=== PATIENT | male | born 1985 | race Caucasian/White ===

== ENCOUNTER 2019-10-07 14:32 | Observation (INO) | payer OTHER ==
--- NOTE | 2019-10-07 15:02 | ER Document Report ---
ED Medical Screen (RME) - General Chief Complaint: Hand Injury Stated Complaint: LEFT HAND LACERATION/TABLE SAW Time Seen by Provider: 10/07/19 15:00 Mode of Arrival: Ambulatory Information source: Patient Notes: 34-year-old male patient presenting with tablesaw injury to his left hand. Unable to get a full evaluation, patient appears to have multiple lacerations, unable to move his fingers. Cap refill less than 3 seconds. Taken straight to a room. I have greeted and performed a rapid initial assessment of this patient. A comprehensive ED assessment and evaluation of the patient, analysis of test results and completion of the medical decision making process will be conducted by additional ED providers. I have specifically instructed the patient or family members with the patient to immediately return to any nursing staff should anything change in the patient's condition or with their chief complaint. Physical Exam - Vital signs Vitals: Temp Pulse Resp BP Pulse Ox 97.6 F 79 16 120/82 97 10/07/19 14:40 10/07/19 14:40 10/07/19 14:40 10/07/19 14:40 10/07/19 14:40 Course - Vital Signs Vital signs: Temp Pulse Resp BP Pulse Ox 97.6 F 79 16 120/82 97 10/07/19 14:40 10/07/19 14:40 10/07/19 14:40 10/07/19 14:40 10/07/19 14:40
--- NOTE | 2019-10-07 15:25 | RADIOLOGY REPORT (SQ) ---
EXAM DESCRIPTION: HAND LEFT 3 VIEWS COMPLETED DATE/TIME: 10/07/2019 3:09 pm REASON FOR STUDY: hand laceration COMPARISON: None. EXAM PARAMETERS: NUMBER OF VIEWS: Three views. TECHNIQUE: AP, lateral and oblique radiographic images acquired of the left hand. LIMITATIONS: Patient unable to extend 2nd and 3rd phalanges. FINDINGS: MINERALIZATION: Normal. BONES: Fracture of the distal margin of the middle 2nd phalanx with a displaced fragment and dislocat ion of the distal interphalangeal joint. JOINTS: See above. SOFT TISSUES: Associated skin defect. Lacerations 3rd, 4th and 5th phalanges. OTHER: No other significant finding. IMPRESSION: Open fracture dislocation of the 2nd phalanx. TECHNICAL DOCUMENTATION: JOB ID: [id number] 2010 [employer]- All Rights Reserved Reading location - IP/workstation name: [email or web address]
[2019-10-07] MEDS ORDERED: MORPHINE SULFATE 10 MG/ML INJ IV ONE (15:56)
[2019-10-07] MEDS ORDERED: ONDANSETRON HCL INJ/PF 4 MG/2 ML SDV IV ONE (15:57)
--- NOTE | 2019-10-07 17:05 | RADIOLOGY REPORT (SQ) ---
EXAM DESCRIPTION: HAND LEFT 3 VIEWS COMPLETED DATE/TIME: 10/07/2019 4:51 pm REASON FOR STUDY: trauma COMPARISON: None. EXAM PARAMETERS: NUMBER OF VIEWS: Three views. TECHNIQUE: AP, lateral and oblique radiographic images acquired of the left hand. LIMITATIONS: None. FINDINGS: MINERALIZATION: Normal. BONES: Comminuted intra-articular fracture distal middle phalanx and base of distal phalanx, second digit. The largest fracture fragment is distracted and displaced dorsally. Marked soft tissue injur y and swelling. JOINTS: See above. SOFT TISSUES: No soft tissue swelling. No foreign body. OTHER: No other significant finding. IMPRESSION: 1. Markedly comminuted distracted intra-articular fracture distal interphalangeal joint , second digit. Swelling and marked soft tissue injury. TECHNICAL DOCUMENTATION: JOB ID: [id number] 2010 [employer]- All Rights Reserved Reading location - IP/workstation name: [email or web address]
[2019-10-07] MEDS ORDERED: LEVOFLOXACIN 750 MG/D5W RTU 750 MG/150 ML RTUPB IV ONE (17:12)
[2019-10-07] MEDS ORDERED: CLINDAMYCIN 900 MG/D5W RTU 900 MG/50 ML RTUPB IV ONE (17:13)
--- NOTE | 2019-10-07 17:17 | ER Document Report ---
ED General - General Chief Complaint: Hand Injury Stated Complaint: LEFT HAND LACERATION/TABLE SAW Time Seen by Provider: 10/07/19 15:00 Mode of Arrival: Ambulatory Information source: Patient, Parent Notes: Patient is a 34-year-old male presenting to the emergency department chief complaint of left second digit injury. Patient states he was using a table saw and ended up cutting his fingers on the left hand. Patient states that they are still attached but at least the second digit is badly lacerated. Patient has no other complaints at this time other than pain from same. Patient denies nausea vomiting diarrhea fevers chills cough or cold symptoms. Patient states tetanus is up-to-date he received it 2 years ago secondary to a chainsaw injury. TRAVEL OUTSIDE OF THE [place] IN LAST 30 DAYS: No - HPI Onset: Just prior to arrival Onset/Duration: Sudden Quality of pain: Throbbing Severity: Severe Pain Level: 5 Associated symptoms: None Exacerbated by: Movement Relieved by: Denies Similar symptoms previously: No Recently seen / treated by doctor: No - Related Data Allergies/Adverse Reactions: codeine Allergy (Verified 10/07/19 15:16) Penicillins Allergy (Verified 10/07/19 15:16) Sulfa (Sulfonamide Antibiotics) Allergy (Verified 10/07/19 15:16) Past Medical History - General Information source: Patient - Social History Smoking Status: Unknown if Ever Smoked Chew tobacco use (# tins/day): No Frequency of alcohol use: None Drug Abuse: None Lives with: Parents Family History: Reviewed & Not Pertinent Patient has suicidal ideation: No Patient has homicidal ideation: No - Medical History Medical History: Negative Surgical Hx: Negative Review of Systems - Review of Systems Constitutional: No symptoms reported EENT: No symptoms reported Cardiovascular: No symptoms reported Respiratory: No symptoms reported Gastrointestinal: No symptoms reported Genitourinary: No symptoms reported Male Genitourinary: No symptoms reported Musculoskeletal: See HPI Skin: No symptoms reported Hematologic/Lymphatic: No symptoms reported Neurological/Psychological: No symptoms reported -: Yes All other systems reviewed and negative Physical Exam - Vital signs Vitals: Temp Pulse Resp BP Pulse Ox 97.6 F 79 16 120/82 97 10/07/19 14:40 10/07/19 14:40 10/07/19 14:40 10/07/19 14:40 10/07/19 14:40 - Notes Notes: PHYSICAL EXAMINATION: GENERAL: Well-appearing, well-nourished however in moderate to severe distress secondary to left hand pain HEAD: Atraumatic, normocephalic. EYES: Pupils equal round and reactive to light, extraocular movements intact, sclera anicteric, conjunctiva are normal. ENT: nares patent, oropharynx clear without exudates. Moist mucous membranes. NECK: Normal range of motion, supple without lymphadenopathy, no appreciable JVD LUNGS: Lungs clear to auscultation bilaterally and equal. No wheezes rales or rhonchi. HEART: Regular rate and rhythm without murmurs ABDOMEN: Soft, nontender, normal bowel sounds. No guarding, no rebound. No masses appreciated. EXTREMITIES: Left hand demonstrates distal fracture dislocation of the second phalanx, distal portion of the finger is hyperesthetic, third digit has multiple superficial lacerations fourth digit also has superficial lacerations sensation is intact to all other digits capillary refill is easily assessed in the other fingers. NEUROLOGICAL: No focal neurological deficits. Moves all extremities spontaneously and on command. SKIN: Warm, Dry, and intact. Normal turgor, no rashes or lesions noted. Course - Re-evaluation Re-evalutation: 10/07/19 20:03 On presentation to the emergency department the patient was brought to the hospital room IV access was obtained. Examination of the patient's hand demonstrated the obvious deformities x-rays were initially taken prior to any medications being administered. Subsequently patient did receive 4 mg IV morphine 4 mg IV Zofran and repeat x-rays were obtained showing the obvious fracture dislocation to the second digit. I did speak with Dr. Castanon orthopedics quality control tester who agrees with admission of the patient overnight for pain management antibiotic administration and will evaluate the patient for surgical management in the morning. Patient and family are agreeable with care plan. Patient is stable at time of admission. - Vital Signs Vital signs: Temp Pulse Resp BP Pulse Ox 98.2 F 64 16 122/73 98 10/07/19 18:38 10/07/19 18:38 10/07/19 18:38 10/07/19 18:38 10/07/19 18:38 - Diagnostic Test Radiology reviewed: Reports reviewed Discharge - Discharge Clinical Impression: Fracture of phalanx of index finger Qualifiers: Encounter type: initial encounter Fracture type: open Phalanx: distal Fracture alignment: displaced Laterality: left Qualified Code(s): S62.631B - Displaced fracture of distal phalanx of left index finger, initial encounter for open fracture Condition: Stable Disposition: ADMITTED OBSERVATION Admitting Provider: Kina Unit Admitted: Surgical Floor
[2019-10-07] MEDS ORDERED: NICOTINE 21 MG/24 HR PATCH.TD24 TD ONE (18:07)
[2019-10-07] MEDS: OXYCODONE-ACETAMINOPHEN 5-325 MG TABLET PO PRN ×2 (19:03→23:19)
[2019-10-07] MEDS: VANCOMYCIN HCL 1,000 MG in DEXTROSE 5%-WATER 250 ML IV SCH (21:34)
[2019-10-08] MEDS: OXYCODONE-ACETAMINOPHEN 5-325 MG TABLET PO PRN ×2 (03:29→08:45)
[2019-10-08] MEDS: VANCOMYCIN HCL 1,000 MG in DEXTROSE 5%-WATER 250 ML IV SCH (10:00)
--- NOTE | 2019-10-08 11:37 | PDOC H&P ---
History of Present Illness Admission Date/PCP: 10/07/19 17:32 Patient complains of: Table saw injury of the left index and middle fingers History of Present Illness: RUBEN RUSSELL is a 34 year old male who sustained an injury to the left index and long fingers on a table saw yesterday. He was reportedly building airplanes for his niece and nephew. He believes that it was the wood that struck his hand but is uncertain whether or not he struck the blade. He had presented to the emergency room. Past Medical History Cardiac Medical History: Denies: None, Atrial Fibrillation, Congestive Heart Failure, Coronary Artery Disease, DVT, Myocardial Infarction, Hyperlipidema, Hypertension, Peripheral Vascular Disease, Pulmonary Embolism, Heart Murmur, Other Pulmonary Medical History: Reports: Asthma EENT Medical History: Denies: None, Cataracts, Eyes, Ears, Nose, Throat, Other Neurological Medical History: Denies: None, Hemorrhagic CVA, Ischemic CVA, Migraine, Multiple Sclerosis, Seizures, Other Endocrine Medical History: Denies: None, Diabetes Mellitus Type 1, Diabetes Mellitus Type 2, Gestational Diabetes, Hyperthyroidism, Hypothyroidism, Obesity, Other Renal/ Medical History: Denies: None, Chronic Kidney Disease, End Stage Renal Disease, Nephrolithiasis, Other Musculoskeltal Medical History: Denies: None, Arthritis, Fibromyalgia, Gout, Other Skin Medical History: Denies: None, Eczema, Psoriasis, Other Psychiatric Medical History: Reports: Bipolar Disorder, Depression Traumatic Medical History: Denies: None, Gunshot Wound, Pneumothorax, Stab Wound, Traumatic Brain Injury, Other Infectious Medical History: Denies: None, Clostridium Difficile, Hepatitis B, Hepatitis C, HIV, Methicillin-Resistant Staph Aureus, Vancomycin-Resistant Enterococci, Other Past Surgical History Past Surgical History: Denies: None, Appendectomy, Cardiac Catheterization, Carotid Endarterectomy, Cholecystectomy, Colostomy, Coronary Artery Bypass Graft, Coronary Stent, Gastric Bypass Surgery, Herniorrhaphy, Hip Replacement, Ileostomy, Internal Defibrillator, Knee Replacement, Orthopedic Surgery, Pacemaker, Renal Transplant, Splenectomy, Thyroidectomy, Tonsillectomy, Valve Replacement, Vascular Surgery, Other Social History Lives with: Parents Smoking Status: Former Smoker Electronic Cigarette use?: No Frequency of Alcohol Use: Rare Hx Recreational Drug Use: Yes Drugs: Marijuana Family History Family History: Reviewed & Not Pertinent Parental Family History Reviewed: Yes Children Family History Reviewed: NA Sibling(s) Family History Reviewed.: NA Medication/Allergy Home Medications: No Home Medications 10/07/19 Allergies/Adverse Reactions: codeine Allergy (Verified 10/07/19 15:16) Penicillins Allergy (Verified 10/07/19 15:16) Sulfa (Sulfonamide Antibiotics) Allergy (Verified 10/07/19 15:16) Review of Systems Constitutional: ABSENT: chills, fever(s), headache(s), weight gain, weight loss Eyes: ABSENT: visual disturbances Cardiovascular: ABSENT: chest pain, dyspnea on exertion, edema, orthropnea, palpitations Respiratory: ABSENT: cough, hemoptysis Gastrointestinal: ABSENT: abdominal pain, constipation, diarrhea, hematemesis, hematochezia, nausea, vomiting Genitourinary: ABSENT: dysuria, hematuria Musculoskeletal: PRESENT: other - There has been a table saw injury to the left hand. There is severe injury to the index finger with destruction of the distal interphalangeal joint and extensive soft tissue damage. It is unclear whether the distal aspect of the index finger has a viable blood supply. Sensation is decreased at the tip of the digit. The long finger has significant soft tissue injury. Sensation is intact to touch of the long finger. Physical Exam Vital Signs: Temp Pulse Resp BP Pulse Ox 98.3 F 54 L 17 117/86 H 98 10/08/19 08:53 10/08/19 08:53 10/08/19 08:53 10/08/19 08:53 10/08/19 08:53 Intake & Output 10/07/19 10/08/19 10/09/19 06:59 06:59 06:59 Intake Total 250 Balance 250 Weight 67 kg General appearance: PRESENT: no acute distress Head exam: PRESENT: atraumatic, normocephalic Eye exam: PRESENT: conjunctiva pink, EOMI, PERRLA. ABSENT: scleral icterus Ear exam: PRESENT: normal external ear exam Mouth exam: PRESENT: other. ABSENT: dry mucosa, laceration, moist, neck supple, tongue midline Teeth exam: PRESENT: poor dentation Throat exam: ABSENT: post pharyngeal erythema, tonsillar erythema, tonsillar exudate, tonsillogmegaly, other Neck exam: ABSENT: carotid bruit, full ROM, JVD, lymphadenopathy, meningismus, tenderness, thyromegaly, tracheal deviation, tracheostomy, other Respiratory exam: PRESENT: clear to auscultation jeramy. ABSENT: rales, rhonchi, wheezes Cardiovascular exam: PRESENT: RRR. ABSENT: diastolic murmur, rubs, systolic murmur Pulses: PRESENT: normal dorsalis pedis pul. ABSENT: normal carotid pulses, normal radial pulses, normal femoral pulses, +1 pedal pulses bilateral, +2 pedal pulses bilateral, other Rectal exam: PRESENT: deferred Gentrourinary exam: ABSENT: ecchymosis, erythema, lacerations, lesions, scrotal swelling, testicular tenderness, urethral discharge, indwelling catheter, other Musculoskeletal exam: PRESENT: other - There is been a severe table saw injury to the left index finger with soft tissue and bone disruption. The distal interphalangeal joint of the digit has been pulverized and disrupted into multiple small pieces. There is a very questionable vascular supply to the tip of the digit. Sensation is diminished at the tip of the index digit. There is mainly a soft tissue injury of the left long finger with possible full disruption of the extensor and flexor tendons. Sensation is intact on the long finger. Neurological exam: PRESENT: alert Psychiatric exam: PRESENT: appropriate affect, normal mood. ABSENT: agitated, anxious, depressed, flat affect, homicidal ideation, manic, suicidal ideation, unusual affect, other Results Impressions: Hand X-Ray 10/07/19 16:18 IMPRESSION: 1. Markedly comminuted distracted intra-articular fracture distal interphalangeal joint, second digit. Swelling and marked soft tissue injury. Assessment & Plan - Diagnosis (2) Contact with powered saw as cause of accidental injury Is this a current diagnosis for this admission?: Yes - Time Time Spent: 30 to 50 Minutes Medications reviewed and adjusted accordingly: Yes Anticipated discharge: Home Within: within 24 hours - Plan Summary Plan Summary: I have recommended exploration and repair in the operating room. We have discussed that depending on the vascular supply of the digit, he may require an amputation. Risk, benefits, and alternatives of the procedures were discussed. An opportunity for questions was provided. All questions were answered to his satisfaction. The patient expressed understanding and wishes to proceed.
[2019-10-08] MEDS ORDERED: FENTANYL CITRATE INJ/PF 100 MCG/2 ML AMPUL ONE (12:33)
[2019-10-08] MEDS ORDERED: ONDANSETRON HCL INJ/PF 4 MG/2 ML SDV ONE (12:34)
[2019-10-08] MEDS ORDERED: DEXAMETHASONE SOD PHOSPHATE INJ 4 MG/1 ML VIAL ONE (12:34)
[2019-10-08] MEDS ORDERED: PROPOFOL INJ 200 MG/20 ML VIAL IV ONE (12:34)
[2019-10-08] MEDS ORDERED: MIDAZOLAM 2 MG/2 ML INJ ONE (12:34)
[2019-10-08] MEDS ORDERED: BUPIVACAINE HCL 0.5 % INJ/PF 30 ML SDV ONE (12:44)
[2019-10-08] MEDS ORDERED: LIDOCAINE 1% INJ-PF (10 MG/ML) 30 ML SDV ONE (12:45)
[2019-10-08] MEDS ORDERED: MEPERIDINE HCL/PF INJ 25 MG/1 ML DISP.SYRIN IV PRN (13:29)
[2019-10-08] MEDS ORDERED: DIPHENHYDRAMINE HCL 50 MG/ML VIAL IV PRN (13:29)
[2019-10-08] MEDS ORDERED: PROMETHAZINE HCL INJ 25 MG/1 ML VIAL IV PRN ×2 (13:29)
[2019-10-08] MEDS ORDERED: FENTANYL CITRATE INJ/PF 100 MCG/2 ML AMPUL IV PRN ×3 (13:29)
[2019-10-08] MEDS: MEPERIDINE HCL/PF INJ 25 MG/1 ML DISP.SYRIN ONE ×2 (14:43→14:48)
--- NOTE | 2019-10-08 14:52 | Operative Report ---
Operative Report DATE OF SURGERY: 10/08/19 PREOPERATIVE DIAGNOSIS: left hand table saw injury POSTOPERATIVE DIAGNOSIS: 1. Left index finger severely comminuted fractures of the distal interphalangeal joint. 2. Left index finger traumatic vascular injury. 3. Left middle finger extensor tendon injury. 4. Left ring finger traumatic soft tissue injury OPERATION: 1. Left index finger revision amputation. 2. Left middle finger debridement with extensor tendon repair. 3. Left ring finger debridement with skin repair SURGEON: DARIEN MOLINA ANESTHESIA: GA COMPLICATIONS: none ESTIMATED BLOOD LOSS: Minimal PROCEDURE: Indications for procedure: The patient is a 34-year-old man who sustained a traumatic table saw injury to the digits of his left hand. Description of procedure: Following the induction of a general anesthetic and prior administration of vancomycin, the patient was positioned supine on the operating room table. All bony prominences were padded. A tourniquet was placed proximally on the left arm but not inflated. The left upper extremity was sterilely prepped with Betadine scrub and preparatory solution and draped in standard fashion. We first turned our attention to the ring finger. Exploration of the ring finger demonstrated a jagged soft tissue injury of skin; however, there was no underlying structural damage. The skin was debrided back to a stable base and then repaired with 4-0 nylon suture. We next turned our attention to the middle finger. There is a jagged soft tissue disruption. Foll owing debridement of the soft tissue and exploration the extensor tendon was found to have been transected 50% overlying the middle phalanx. There was also injury to the digital artery and nerve in that area. The extensor tendon was repaired side to side. The artery and nerve had been shredded and were not suitable for repair. The wound was irrigated. And the skin reapproximated with nylon suture. Next exploration of the index finger demonstrated comminuted fractures of the articular surface of the head of the middle phalanx and base of the distal phalanx. Flexor tendon disruption was also present. The digital arteries at this level had also been transected. It was decided perform an amputation at the level of the distal interphalangeal joint. A soft tissue flap with volar skin was fashioned. The dorsal skin as well as the nailbed was excised. And the volar flap was inset dorsally for closure. Digital blocks were performed to all of the digits for postoperative analgesia. A bulky sterile dressing was then applied to all the digits. The patient tolerated the procedure well without complication and was brought recovery in stable condition. He will be discharged on doxycycline and Percocet.
[2019-10-08] MEDS ORDERED: OXYCODONE-ACETAMINOPHEN 5-325 MG TABLET PO PRN (15:06)
--- NOTE | 2019-10-08 15:23 | RADIOLOGY REPORT (SQ) ---
EXAM DESCRIPTION: NO CHG FLUORO; FINGER LEFT COMPLETED DATE/TIME: 10/08/2019 2:57 pm REASON FOR STUDY: LEFT INDEX/ 2ND FINGER AMPUTATION ASST WITH FLUORO IN OR; LEFT INDEX FINGER AMPUT ATION ASST WITH FLUORO IN OR COMPARISON: None. FLUOROSCOPY TIME: 24 seconds 3 Images saved to PACS TECHNIQUE: Intra-operative images acquired during surgical procedure to evaluate progress. NUMBER OF IMAGES: 3 LIMITATIONS: None. FINDINGS: Limited fluoroscopic intraoperative images obtained to evaluate surgical progress. Please see operative report for detailed description. IMPRESSION: IMAGE(S) OBTAINED DURING PROCEDURE. COMMENT: Quality ID [id number]: Final reports for procedures using fluoroscopy that document radiation exp osure indices, or exposure time and number of fluorographic images (if radiation exposure indices are not available) Please consult full operative report of the attending physician for description of the procedure. TECHNICAL DOCUMENTATION: JOB ID: [id number] 2010 [employer]- All Rights Reserved Reading location - IP/workstation name: [email or web address]
--- NOTE | 2019-10-08 15:23 | RADIOLOGY REPORT (SQ) ---
EXAM DESCRIPTION: NO CHG FLUORO; FINGER LEFT COMPLETED DATE/TIME: 10/08/2019 2:57 pm REASON FOR STUDY: LEFT INDEX/ 2ND FINGER AMPUTATION ASST WITH FLUORO IN OR; LEFT INDEX FINGER AMPUT ATION ASST WITH FLUORO IN OR COMPARISON: None. FLUOROSCOPY TIME: 24 seconds 3 Images saved to PACS TECHNIQUE: Intra-operative images acquired during surgical procedure to evaluate progress. NUMBER OF IMAGES: 3 LIMITATIONS: None. FINDINGS: Limited fluoroscopic intraoperative images obtained to evaluate surgical progress. Please see operative report for detailed description. IMPRESSION: IMAGE(S) OBTAINED DURING PROCEDURE. COMMENT: Quality ID [id number]: Final reports for procedures using fluoroscopy that document radiation exp osure indices, or exposure time and number of fluorographic images (if radiation exposure indices are not available) Please consult full operative report of the attending physician for description of the procedure. TECHNICAL DOCUMENTATION: JOB ID: [id number] 2010 [employer]- All Rights Reserved Reading location - IP/workstation name: [email or web address]
[2019-10-08 18:15] VITALS: BP 121/76
== END 2019-10-08 17:30 | disposition home or self-care (01) ==
LOC: OROUT 14:32 → EH 17:32 → INTOOBSV 17:32 → 4S 18:50
PROVIDERS: ADMIT Orthopaedic Surgery; ATTEND Orthopaedic Surgery
DX: S62.631B Displaced fracture of distal phalanx of left index finger, initial encounter for open fracture (principal); S62.621B Displaced fracture of middle phalanx of left index finger, initial encounter for open fracture; S66.323A Laceration of extensor muscle, fascia and tendon of left middle finger at wrist and hand level, initial encounter; S65.513A Laceration of blood vessel of left middle finger, initial encounter; S61.215A Laceration without foreign body of left ring finger without damage to nail, initial encounter; W31.2XXA Contact with powered woodworking and forming machines, initial encounter; Z87.891 Personal history of nicotine dependence
CPT/HCPCS: 26951; 20103; 99284; 96374; 96375; 73140; 73130; 01830; G0378 ×2; C1713 ×2; J2250; J3490; J1100; J3010; J2175; J2270; J2405 ×2; J7060 ×2; J2704; J3370 ×2